=== PATIENT | male | born 1945 | race Caucasian/White ===

== ENCOUNTER → 2019-01-10 | Outpatient (CLI) | payer MEDICARE, OTHER | LOC: LAB.O 09:42 | PROVIDERS: ATTEND General Practice | DX: I48.91 Unspecified atrial fibrillation (principal) ==

== ENCOUNTER → 2019-01-15 | Outpatient (CLI) | payer MEDICARE, OTHER ==
--- NOTE | 2019-01-15 13:57 | MRI ---
Study: MRI of the Right Ankle. Indication: Right ankle pain and swelling. Osteomyelitis. Technique: Multiplanar, multi sequence MRI of the right ankle was obtained with and without intravenous contrast. Comparison: None. Findings: Unfortunately, examination is moderately motion degraded despite repeated sequences and repositioning. There is abnormal marrow edema and enhancement within the posterior calcaneal tuberosity extending to the plantar margin. Skin ulceration noted adjacent to this site at the posterolateral hindfoot but is difficult to evaluate as this is at the peripheral [id number]. These findings are concerning for osteomyelitis. No drainable fluid collection. Cellulitis of the ankle noted. No displaced fracture. Tiny tibiotalar and subtalar joint effusions. Tenosynovitis peroneal tendons with peroneal brevis tendinosis. No acute tear of the ankle tendons. Prior sprain and attenuation anterior talofibular ligament. Mild ossification within the distal tibiofibular syndesmosis indicating remote syndesmotic injury. 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 Impression: Moderate to severely motion degraded examination. Skin ulceration and cellulitis posterolateral hindfoot with abnormal marrow edema and enhancement of the posterior calcaneus concerning for osteomyelitis. Additional findings as above. Electronically signed by: Earle Walker MD 01/15/2019 1:54 PM CDT
== END ==
LOC: MRI 07:14
PROVIDERS: ATTEND General Practice
DX: M86.171 Other acute osteomyelitis, right ankle and foot (principal); M87.861 Other osteonecrosis, right tibia